=== PATIENT | male | born 1960 | race Caucasian/White ===

== ENCOUNTER → 2023-11-05 | Outpatient (CLI) | payer BC, SELFPAY ==
[2023-11-05 10:20] LABS: Absolute Lymphocyte Count 1.49 X10^3/uL (0.83-4.51); Absolute Neutrophil Count 4.6 X10^3/uL (2.0-7.7); Basophil# 0.07 X10^3/uL; Eosinophil# 0.19 X10^3/uL; Eosinophils% 2.7 % (0-5); Hematocrit 45.4 % (40-54); Lymphocyte # 1.49 X10^3/ul (0.83-4.51); Lymphocyte % 21.3 % (19-41); Mean Corpuscular Hgb 27.1 pg (27.0-32.0); Mean Corpuscular Volume 82.1 fL (80-94); Mean Platelet Vol. 10.7 fl (6.2-12.0); Monocyte# 0.65 X10^3/uL; Monocyte% 9.3 % (0-10); NRBC Flagged by Analyzer 0 % (0-5); Neutrophil # 4.58 X10^3/uL (2.7-7.7); Neutrophil % 65.4 % (47-70); Platelet Count 251 K/mm3 (150-450); RBC Distribution Width CV 14.1 % (11.6-14.6); RBC Distribution Width SD 41.8 fl (35.1-43.9); Red Blood Count 5.53 M/mm3 (4.6-6.2)
[2023-11-05 10:55] LABS: ALB/GLOB Ratio 1.1 RATIO (0.9-2.4); AST(SGOT) 38 U/L (15-37); Alanine Aminotransfer ALT/SGPT 85 U/L (16-61); Albumin, Serum 3.8 g/dL (3.2-5.0); Alkaline Phosphatase 81 U/L (45-117); Anion Gap 8 (5-15); BUN 17 mg/dL (7-18); Calcium,Total 9.1 mg/dL (8.5-10.1); Chloride 105 mmol/L (98-107); Cholesterol 196 mg/dL (200); Creatinine, Serum 1.13 mg/dL (0.70-1.30); EST Glomerular Filtration Rate 70 mL/min (>60); Est Glom Filt Rate - Afr Amer 85 mL/min (>60); Globulin 3.4 g/dL (2.2-4.2); Glucose 115 mg/dL (74-106); High Density Lipoprotein 29 mg/dL; PSA,Total - Annual Screen 0.92 ng/mL (0.00-4.00); Potassium 3.5 mmol/L (3.5-5.1); Protein, Total 7.2 g/dL (6.4-8.2); Sodium Level 138 mmol/L (136-145); Thyroid Stim Hormone (TSH) 1.91 uIU/mL (0.358-3.74); Triglycerides 201 mg/dL; Very Low Density Lipoprotein 40 mg/dL (5-40)
[2023-11-05 11:52] LABS: Vitamin D,25 Hydroxy 29.8 ng/mL
== END | disposition home or self-care (01) ==
LOC: MTLAB 07:41
PROVIDERS: PCP Family Medicine; Referring Provider Family Medicine; Visit Provider Family Medicine
DX: Z12.5 Encounter for screening for malignant neoplasm of prostate (principal); I10 Essential (primary) hypertension
CPT/HCPCS: 36415; 80053; 80061; 82306; 84153; 84443; 85025; G0103

== ENCOUNTER 2024-03-20 10:11 | Observation (INO) | payer OTHER, SELFPAY ==
--- NOTE | 2024-02-29 12:15 | EKG12_ITS ---
Test Reason : PRE OP Blood Pressure : / mmHG Vent. Rate : 056 BPM Atrial Rate : 056 BPM P-R Int : 158 ms QRS Dur : 086 ms QT Int : 434 ms P-R-T Axes : 030 018 023 degrees QTc Int : 418 ms Sinus bradycardia Otherwise normal Confirmed by Red Cornelius ([id number]), map editor JORGE ALBERTO BAUGH ([id number]) on 03/01/2024 5:23:31 AM Referred By: Omega Ba Confirmed By:Red Cornelius
[2024-02-29 13:20] LABS: Absolute Lymphocyte Count 1.73 X10^3/uL (0.83-4.51); Absolute Neutrophil Count 3.9 X10^3/uL (2.0-7.7); Basophil# 0.07 X10^3/uL; Basophil% 1.1 % (0-1); Eosinophil# 0.18 X10^3/uL; Eosinophils% 2.8 % (0-5); Hematocrit 43.2 % (40-54); Hemoglobin 14.3 g/dL (13.0-16.5); Lymphocyte # 1.73 X10^3/ul (0.83-4.51); Lymphocyte % 26.7 % (19-41); Mean Corp Hgb Conc 33.1 g/dL (32-36); Mean Corpuscular Hgb 27.3 pg (27.0-32.0); Mean Corpuscular Volume 82.4 fL (80-94); Mean Platelet Vol. 10.5 fl (6.2-12.0); Monocyte# 0.62 X10^3/uL; Monocyte% 9.6 % (0-10); NRBC Flagged by Analyzer 0 % (0-5); Neutrophil # 3.86 X10^3/uL (2.7-7.7); Neutrophil % 59.5 % (47-70); Platelet Count 224 K/mm3 (150-450); RBC Distribution Width CV 14.2 % (11.6-14.6); RBC Distribution Width SD 42.3 fl (35.1-43.9); Red Blood Count 5.24 M/mm3 (4.6-6.2); White Blood Count 6.5 K/mm3 (4.4-11.0)
[2024-02-29 13:38] LABS: Albumin, Serum 3.7 g/dL (3.2-5.0); Anion Gap 6 (5-15); BUN 16 mg/dL (7-18); BUN/Creat Ratio 15.2 RATIO (10-20); Calcium,Total 9.6 mg/dL (8.5-10.1); Chloride 102 mmol/L (98-107); Creatinine, Serum 1.05 mg/dL (0.70-1.30); EST Glomerular Filtration Rate 76 mL/min (>60); Est Glom Filt Rate - Afr Amer 92 mL/min (>60); Glucose 98 mg/dL (74-106); Magnesium 2.1 mg/dL (1.6-2.6); Potassium 3.5 mmol/L (3.5-5.1); Sodium Level 138 mmol/L (136-145)
[2024-03-20] VITALS (15 sets, daily range): BP systolic 94–142; BP diastolic 46–87; PULSE 72–101; RESP 16–18; TEMP 36.2–37; O2SAT 94–100; BMI 42.0; BMI 44.4
--- NOTE | 2024-03-20 08:18 | PCM.PRE.AN2 ---
ASA Classification* ASA Classification ASA Classification: 3 Assessment & Plan Anesthesia* Anesthesia Assessment Anesthesia Assessment: Discussed sedation and/or anesthesia options, risks, benefits, and alternatives with patient/parents/legal guardian/POA. Questions invited. The patient/parents/legal guardian/POA seems to understand and agrees to proceed with anesthesia plan. Reviewed the physical assessment, medical history, allergy history and patient home medications list prior to surgery/procedure/anesthetic and documented any changes. Performed airway and anesthesia risk assessments. Anesthesia Type Anesthesia Type: Spinal Anesthesia Focused Assessment* Airway Assessment Mouth opens: >3 cm Mallampati Score: II Focused Labs Anesthesia Preop lab: CBC WBC 6.5 K/mm3 (4.4-11.0) 02/29/24 12:31 RBC 5.24 M/mm3 (4.6-6.2) 02/29/24 12:31 Hgb 14.3 g/dL (13.0-16.5) 02/29/24 12:31 Hct 43.2 % (40-54) 02/29/24 12:31 Plt Count 224 K/mm3 (150-450) 02/29/24 12:31 CHEMISTRY Potassium 3.5 mmol/L (3.5-5.1) 02/29/24 12:31 Sodium 138 mmol/L (136-145) 02/29/24 12:31 Magnesium 2.1 mg/dL (1.6-2.6) 02/29/24 12:31 BUN 16 mg/dL (7-18) 02/29/24 12:31 Creatinine 1.05 mg/dL (0.70-1.30) 02/29/24 12:31 Glucose 98 mg/dL (74-106) 02/29/24 12:31 TSH 1.91 uIU/mL (0.358-3.74) 11/05/23 07:42 COAG Pre-Assessment Diagnosis/Proposed Procedure Planned Operative Procedure(s): ANTERIOR RIGHT TOTAL HIP ARTHROPLASTY Anesthesia History Anesthesia History - group controller: Anesthesia History - group controller Hx Hospitalization No 02/25/24 10:29 Any Problems With Anesthesia No 02/25/24 10:29 Cholinesterase deficiency No 02/25/24 10:29 You/Your Family Experience No 02/25/24 10:29 fever (hyperthermia) with Relationship Recent Exposure to Contagious Disease Does patient have nerve No 02/25/24 10:29 stimulator Patient instructed to have device shut off --Does patient have Pacemaker or ICD? When Was Last Pacemaker Check QUESTION #4 FULL TEXT: You/Your Family Experience fever (hyperthermia) with Anesthesia Last Oral Intake Last Oral intake: Last Oral Intake NPO since Meds taken in AM with sips of water? Meds patient instructed to take am of surgery PONV PONV - group controller: PONV - group controller Female No 02/25/24 10:29 HX of Motion Sickness No 02/25/24 10:29 HX of N/V After Surgery No 02/25/24 10:29 Non-Smoker Yes 02/25/24 10:29 Duration of Surgery greater Yes 02/25/24 10:29 than 60 minutes Number of Risk Factors 2 02/25/24 10:29 PONV Score Moderate Risk 02/25/24 10:29 Height & Weight Height & Weight: Anesthesia: Height & Weight Weight: 144.469 kg 03/17/24 10:14 Respiratory Assessment Respiratory Assessment - group controller: Respiratory Tract Infection Hx - group controller Hx Respiratory Tract Infection No 02/25/24 10:29 STOP Sleep Apnea STOP Sleep Apnea - group controller: STOP Sleep Apnea - group controller Hx Hypertension Yes: CONTROLLED WITH MED 02/25/24 10:29 Hx Sleep Apnea Yes 02/25/24 10:29 CPAP Yes: NONCOMPLIANT 02/25/24 10:29 BIPAP No 02/25/24 10:29 Do you snore loudly (louder than talking or can be heard Do you often feel tired/ fatigued/ sleepy during daytime? Has anyone observed you stop breathing during sleep? STOP Results Positive 02/25/24 10:29 QUESTION #5 FULL TEXT : Do you snore loudly (louder than talking or can be heard through closed doors)? Tobacco Use History Tobacco Use History - group controller: Tobacco Use History - group controller Tobacco Use Smoking Status Never smoker 02/25/24 10:29 Hx Tobacco Use No 02/25/24 10:29 Years Smoking Packs Smoked per Day Smoking Cessation Date was within the last 15 years Hx Smoking Cessation Date Hx Smoking Cessation Counseling Hematologic Medial History Hematologic Hx - group controller: Hematologic Medical Hx - chief risk officer Hx of Blood Transfusion No 02/25/24 10:29 Hx of Transfusion in last 3 No 02/25/24 10:29 Months Date of Last Transfusion (if within last 3 months) Ever experience any problems No 02/25/24 10:29 with transfusion(s)? Specify any problems Hx of Preganancy in last 3 N/A 02/25/24 10:29 Months Nurse Filling Out Transfusion DSCHRIBER 02/25/24 10:29 & Questions: Date: 02/25/24 02/25/24 10:29 Time: 10:31 02/25/24 10:29 Patient unable to answer at this time (ie. confused, unrespo /Reproduction History /Reproductive History - group controller: /Reproductive Hx- group controller Hx Now No 02/25/24 10:29 Gestational Age (in weeks): EDC: Hx Hx Para Hx Section SAB No 02/25/24 10:29 Active Medications Active Medications: Current Medications Generic Name Dose Route Start Last Admin Trade Name Freq PRN Reason Stop Dose Admin Acetaminophen 1,000 mg 03/20/24 12:30 Acetaminophen 500 Mg Tablet PO 03/20/24 12:31 X1 ONE Celecoxib 400 mg 03/20/24 12:30 Celecoxib 200 Mg Capsule PO 03/20/24 12:31 X1 ONE Sodium Chloride 77.4 ml/ 0 ml 03/20/24 12:30 Ropivacaine 200 mg/ OPERA.SITE 03/20/24 12:31 Epinephrine HCl 0.6 mg/ X1 ONE Ketorolac Tromethamine 30 mg/ Morphine Sulfate 5 mg Dexamethasone Sodium Phosphate 10 mg 03/20/24 12:30 Dexamethasone 10 Mg/Ml Vial IV 03/20/24 12:31 X1 ONE Gabapentin 600 mg 03/20/24 12:30 Gabapentin 600 Mg Tablet PO 03/20/24 12:31 X1 ONE Lactated Ringer's 1,000 mls @ 999 mls/hr 03/20/24 12:30 IV 03/20/24 13:30 .Q1H1M INOCENTE Tranexamic Acid 1,000 mg/ 110 mls @ 660 mls/hr 03/20/24 12:30 Sodium Chloride IV 03/20/24 12:39 X1 ONE Tranexamic Acid 1,000 mg/ 110 mls @ 660 mls/hr 03/20/24 13:30 Sodium Chloride IV 03/20/24 13:39 X1 ONE Lactated Ringer's 1,000 mls @ 999 mls/hr 03/20/24 13:30 IV 03/20/24 14:30 .Q1H1M INOCENTE Lactated Ringer's 1,000 mls @ 125 mls/hr 03/20/24 14:30 IV 03/20/24 22:29 .Q8H INOCENTE Cefazolin Sodium 3 gm/ N/A 30 mls @ 600 mls/hr 03/20/24 12:30 IV 03/20/24 12:32 PREOP ONE Magnesium Sulfate 1 gm/ 102 mls @ 408 mls/hr 03/20/24 12:30 Dextrose IV 03/20/24 12:44 X1 ONE Lactated Ringer's 1,000 mls @ 15 mls/hr 03/20/24 08:15 IV 03/23/24 02:54 .Q48H INOCENTE Protocol Insulin Human Lispro 1 - 6 unit 03/20/24 12:30 Insulin Lispro 100 Unit/Ml Insuln.Pen SC 03/20/24 18:30 Q4H PRN PRN BG>/= 180, SEE PROTOCOL Protocol PFSH Medical History Paralysis Wears glasses Alcohol use Arthritis High cholesterol Back pain Migraine headache Injury of head and neck CPAP (continuous positive airway pressure) dependence Non-smoker Leg cramps History of pain when walking Hypertension Home Medications ?Medication ?Instructions ?Recorded ?Last Taken ?Type aspirin 81 mg tablet,delayed 162 mg PO DAILY 02/25/24 Unknown History release (Adult Low Dose Aspirin) diclofenac sodium 75 mg 75 mg PO BID 02/25/24 Unknown History tablet,delayed release fiber 1 tab PO DAILY 02/25/24 Unknown History lisinopril 20 mg tablet 20 mg PO DAILY 02/25/24 Unknown History Allergy/AdvReac Type Severity Reaction Status Date / Time No Known Allergies Allergy Verified 02/25/24 10:24 Surgical History History of surgery on arm Hx of colonoscopy History of lumbar laminectomy Hx of shoulder surgery Hx of tonsillectomy Hx of foot surgery Hx of umbilical hernia repair Social History Smoking Status: Never smoker Review of Systems (Anesthesia) ROS Narrative System reviewed and no additional complaints, except as documented.
[2024-03-20 08:51] LABS: Bedside Glucose 131 mg/dL (74-106)
[2024-03-20] MEDS: Lactated Ringers 1,000 ML 999 ML IV ×2 (08:54→12:05)
[2024-03-20] MEDS: Gabapentin 600 MG Tablet PO (08:55)
[2024-03-20] MEDS: Acetaminophen 500 MG Tablet 1000 MG PO ×3 (08:55→22:01)
[2024-03-20] MEDS: Celecoxib 200 MG Capsule 400 MG PO (08:55)
[2024-03-20] MEDS: Magnesium 1 GM over 15 mins IV (08:55)
[2024-03-20] MEDS: Vancomycin HCl 2,000 MG in 0.9% Normal Saline (500mL Bag) 500 ML 250 MG IV (09:00)
--- NOTE | 2024-03-20 10:00 | HIP_PTH ---
PATIENT: OMEGA OWENS LOC: [facility] U#:[id number] AGE/SX: 63/M ROOM: ME318 RE03/20/[address]: Dr. Omega Ba MD : 1960 BED: 1 DIS: 03/21/2024 SPEC #: [id number] RECD: 03/20/24 13:40 STATUS: KARL HALLSwathi #: [id number] LEONEL: 03/20/24 10:[address]: Omega Ba DEPT: SURGICAL PATHOLOGY RECD BY: Tianna Lane ENTERED: 03/20/24 14:13 SP TYPE: TOTAL HIP OTHR DR: Benji Brenner MD Tissues: Hip, NOS Procedures: Decalcification bone/plaque Surgery Specimen Level IV HEADER OPERATION: Anterior right total hip arthroplasty PRE-OP DIAGNOSIS: Severe osteoarthritis right hip TISSUE SUBMITTED: Right hip : bone and tissue MICROSCOPIC DIAGNOSIS Bone and tissue of right hip, total hip resection: Severe degenerative joint disease. AM: 03/23/2024 MICROSCOPIC DESCRIPTION Slides are reviewed. GROSS DESCRIPTION Received is one container labeled with the patient's name and designated bone and soft tissue right hip. The specimen consists of a roldan femoral head (with portion of femoral neck). The femoral head measures 5.3 x 5.5 cm. The articular surface displays prominent osteophyte formation, eburnation and bone erosion. Also present in the specimen container are multiple irregular fragments of bone reamings and pink-yellow soft tissue measuring in aggregate 10.0 x 8.0 x 1.5 cm. Type Disk Quality Control Supervisor sections are submitted in two cassettes as follows: 1 - bone reamings, 2 - femoral head after decalcification. / AM. 03/20/2024 TC:5 [facility]: [id number]
--- NOTE | 2024-03-20 10:13 | RAD_ITS ---
INDICATION: Post Op -- AP both hips on single melody/lateral of op hip PACU EXAMINATION/TECHNIQUE: X-RAY - XR Hip Unilateral with Pelvis when performed; 2-3 Views COMPARISON: March 20, 2024 at 11:58 AM FINDINGS: There is a right total hip arthroplasty in place. The alignment is anatomic. There are degenerative changes of the left hip. There are postsurgical changes within the soft tissues of the right proximal thigh. No acute fracture nor dislocation. No suspicious bony lesions are seen. RAD/Hip Min 2 Views (Portable) IMPRESSION: Total right hip arthroplasty, grossly anatomic in alignment. Electronically Signed: Vane Carrasquillo MD at 13:54 EDT ,
[2024-03-20] MEDS: Cefazolin 3 GM in Syringe 1 EACH IV (10:14)
[2024-03-20] MEDS: Cefazolin 1 GM/50 ML BAG IV ×2 (10:14→19:22)
[2024-03-20] MEDS: dexAMETHasone 10 MG/ML Vial IV (10:27)
[2024-03-20] MEDS: TXA 1000mg in NS100 100ml (IVPB at Closure) 660 MG IV (10:31)
--- NOTE | 2024-03-20 11:00 | RAD_ITS ---
STUDY: X-RAY - PELVIS AND RIGHT HIP REASON FOR EXAM: Male, 63 years old. PAIN TECHNIQUE: 3 fluoroscopic intraoperative spot films of the pelvis and right hip. COMPARISON: None. FINDINGS: There is a right hip arthroplasty in place. There is no periprosthetic fracture. There is adjacent soft tissue gas, compatible with recent surgery. Normal visualized soft tissue structures. Normal bilateral superior and inferior pubic rami. Normal pubic symphysis. Normal bilateral ischial tuberosities. RAD/Hip 1 view with Pelvis IMPRESSION: Right hip arthroplasty, with no periprosthetic fracture. Electronically Signed: Main Richardson MD at 13:54 EDT ,
--- NOTE | 2024-03-20 11:15 | OP.PCM_ITS ---
Report of Operation Date of Procedure: 03/20/24 Pre-Operative Diagnosis: Right hip primary osteoarthritis Post-Operative Diagnosis: Right hip primary osteoarthritis Surgery/Procedure Performed:: Right minimally invasive direct anterior total hip replacement Description of Surgical Findings:: Stable hip with equal leg length Surgeon: Omega Ba woolen suiting shrinker: Jez Flores Type of Anesthesia: Spinal Anesthesiologist: Vijay Erickson Special Medications: 2 g Ancef, 1 g TXA at incision, 1 g TXA closure, 10 mg Decadron, joint cocktail (5 mg Duramorph, 30 mL of 0.5% Ropivicaine, 1000 units of epinephrine, 30 mg of Toradol) Specimen's removed: Bony cuts Estimated Blood Loss (mL): 350 Fluids Replaced: 1400 Description of Procedure: Components used: 1. Accolade 2 Miguel femoral stem size 5 127? 2. Masury trident 2 acetabular shell size 58 mm 3. Masury X3 polyethylene F 4. Masury Biolox delta 36mm, 5mm femoral head Brief history operative indications: 63 yo M who failed conservative measures for their hip osteoarthritis. X-rays were consistent with osteoarthritis including joint space narrowing, osteophyte formation and subchondral cysts. Total hip replacement was discussed with the patient with risks and benefits including but not limited to blood loss, DVTs, PEs, neurovascular damage, dislocation, general risks of anesthesia including loss of life. Patient demonstrated an understanding medical clearance is obtained the patient was consented for surgery. Procedure: On the date of procedure the patient's right hip was marked in the preoperative area. Patient was then taken back to the operating room where anesthesia assumed control of the C-spine and airway and administered anesthetic. Patient was transferred to the operating table and placed in the supine position. The hips were placed at the break of the bed and a sacral bump was placed. The right lower extremity was then prepped out in a sterile fashion using chlorhexidine while the surgeon scrubbed. The PA was vital in the positioning of the patient. Upon reentering the room the right lower extremity was draped in the standard orthopedic fashion and the incision was marked. A timeout was called and e veryone agreed upon the side, the site, the procedure be performed, antibody given, and patient's identity. At this time incision was made through skin, subcutaneous tissue, and fat down to fascia. The fascia was then incised and the TFL was retracted laterally. A retractor was placed on the lateral border of the femoral neck. Attention was directed to the inferior portion of the approach and all crossing vessels were identified and appropriately coagulated. A retractor was then placed on the medial portion of the femoral neck. The anterior capsule was then cleared of all soft tissue and then H shaped capsulotomy was made. The retractors were then placed inside the capsule. The femoral neck was identified and a cleanup cut was made. At this time a power corkscrew was used to remove the femoral head. Attention was then turned toward the acetabulum where the soft tissues were appropriately retracted and the acetabulum was sequentially reamed to 58 mm. A 58 mm cup was then selected and impacted into place. Acetabular liner was impacted into place and locking mechanism was verified. The position of the acetabular cup was then verified under live fluoroscopy. Attention was then turned to the femur. Soft tissue releases on the medial and lateral femoral neck were appropriately done, the leg was externally rotated and lateralized. A Cisneros retractor was placed medially and proximally to the greater trochanter this allowed appropriate visualization and exposure of the femoral canal. Rongeour was then used to remove excess lateral bone. A canal finder and entry broach were used to open the proximal canal. Once we verified we were down the femoral canal we subsequently broached up to a size 5 femur. The appropriate neck was placed in the previously selected head was trialed with a 5 mm neck. Traction was pulled and the hip was reduced with internal rotation. Once it was appropriately reduced and stability was checked. There was minimal shuck, equal leg lengths and appropriate stability with hyperextension and external rotation as well as with 90? flexion and internal rotation. Fluoroscopy was then also used to verify the position of the componen ts and leg lengths using the contralateral side for comparison. The trial components were then dislocated the proximal femur was again exposed and the components were removed from the wound. The final components were verified and opened. The wound was copiously irrigated out with normal saline. The acetabulum was checked for any residual debris. The final components were placed and impacted. Traction and internal rotation were again used to reduce the hip. After adequate reduction the hip remained stable with appropriate leg lengths. The final components were once again checked with live fluoroscopy and were found to be satisfactory. The wound was then copiously irrigated with normal saline once more, and hemostasis was obtained. Closure was then done using #1 Vicryl runner to close the fascia. A 2-0 vicryl interuppted sutures were used to close the subcutaneous skin. A 3-0 Monocryl and Steri-Strips were used for final skin closure. A Silverlon dressing was placed. Patient was awakened by anesthesia and transferred to the [facility]. Patient was then transferred to the PACU for recovery. During the course of the procedure the physician lockstitch coat joiner (PE) played a vital role. Their intimate knowledge of my steps in the procedure aided in safe and expedient completion of the procedure. The PE played a vital rolls in positioning particularly in obtaining the appropriate positioning of the sacral bump. The PE was also vital in the retraction of soft tissues during the exposure and especially the femoral work as this is a vital part of the procedure to prevent complications and fractures. The PE was also vital and protecting soft tissues during times of bony cuts and reaming. He also played a vital role in closure with my direct supervision. The PE was also important during reduction and dislocation of the joint and trials intraoperatively. Postoperative plan: Patient will get 24 hours postop antibiotics. Patient will get in-house physical therapy and will be weight-bear as tolerated. Patient will follow up in office in 2 weeks for a wound check and x-rays. Aspirin 81 mg twice daily. Positive staph and BMI greater than 40. Patient be placed on extended oral postop antibiotics doxycycline 100 mg p.o. twice daily Complications No intraoperative complications Admit VTE Documentation VTE Present on Admission: No VTE Mechan Device Prophylaxis: SCD's and Thigh High MATHEW Hose VTE Pharm Prophylaxis ordered?: Yes
[2024-03-20] MEDS: TXA 1000mg in NS100 100ml (IVPB at Incision) 660 MG IV (11:17)
[2024-03-20] MEDS: JPS (Morphine 10mg/ml) OPERA.SITE (11:23)
[2024-03-20] MEDS: Lactated Ringers 1,000 ML 125 ML IV (13:29)
--- NOTE | 2024-03-20 13:54 | PCM.POST.ANE ---
Anesthesia: Postop Eval I Current Vital Signs Temperature: 97.1 F Pulse Rate: 94 Blood Pressure: 94/87 Respiratory Rate: 16 Pulse Ox: 96 Oxygen Delivery Method: Room Air Assessment Airway patent: Yes Spontaneous unlabored respirations: Yes Mental status: Awake and Calm nausea: No Vomiting: No Anesthesia Complication: No Fluid Hydration Crystalloid volume administer (ml): 1,400 Total IV fluid infused: 1,400 Progress Note Anesthesia document: Postop Eval 1 completed: Yes
[2024-03-20] MEDS: Ensure Surgery 237 ML LIQUID PO ×2 (14:31→17:57)
--- NOTE | 2024-03-20 16:48 | POSTOPAN2_ITS ---
Anesthesia Postop Eval I Sum Postop Eval Completion status Anesthesia document: Postop Eval 1 completed: Yes Anesthesia Postop Eval I Summary Anesthesia Postop Eval I Summary: Anesthesia Postop Eval I: Assessment Summary Airway patent Yes 03/20/24 13:55 PRINT [email or web address].MDOT Spontaneous unlabored Yes 03/20/24 13:55 PRINT CUTTER.MDOT respirations Mental status Awake,Calm 03/20/24 13:55 PRINT CUTTER.MDOT nausea No 03/20/24 13:55 PRINT CUTTER.MDOT Vomiting No 03/20/24 13:55 PRINT [email or web address].MDOT Anesthesia Postop Eval I: Fluid Summary Crystalloid volume administer 1,400 03/20/24 13:55 PRINT CUTTER.MDOT (ml) Colloids volume administered ( ml) Blood Product volume administered (ml) Total IV fluid infused 1,400 03/20/24 13:55 PRINT CUTTER.MDOT Anesthesia Postop Eval I: Summary Notes Anesthesia Complication No 03/20/24 13:55 PRINT [email or web address].MDOT Anesthesia Complication Comment: Post-operative progress note Anesthesia: Postop Eval II Evaluation Mental status: Awake and Calm Pain Level: 1 nausea: No Vomiting: No Complications Anesthesia Complication: No
--- NOTE | 2024-03-20 16:48 | PCM.POSTANE2 ---
Anesthesia Postop Eval I Sum Postop Eval Completion status Anesthesia document: Postop Eval 1 completed: Yes Anesthesia Postop Eval I Summary Anesthesia Postop Eval I Summary: Anesthesia Postop Eval I: Assessment Summary Airway patent Yes 03/20/24 13:55 [email or web address] Spontaneous unlabored Yes 03/20/24 13:55 [email or web address] [email or web address] respirations Mental status Awake,Calm 03/20/24 13:55 [email or web address] nausea No 03/20/24 13:55 [email or web address] [email or web address] Vomiting No 03/20/24 13:55 [email or web address] [email or web address] Anesthesia Postop Eval I: Fluid Summary Crystalloid volume administer 1,400 03/20/24 13:55 [email or web address] [email or web address].MDOT (ml) Colloids volume administered ( ml) Blood Product volume administered (ml) Total IV fluid infused 1,400 03/20/24 13:55 [email or web address] [email or web address] Anesthesia Postop Eval I: Summary Notes Anesthesia Complication No 03/20/24 13:55 [email or web address] [email or web address] Anesthesia Complication Comment: Post-operative progress note Anesthesia: Postop Eval II Evaluation Mental status: Awake and Calm Pain Level: 1 nausea: No Vomiting: No Complications Anesthesia Complication: No
[2024-03-20] MEDS: Aspirin 81 MG TAB.CHEW PO (17:55)
[2024-03-20] MEDS: Ketorolac 15 MG/ML Vial IV (18:05)
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
[2024-03-20] MEDS: Senna/Docusate Sodium 1 Tablet 2 TABLET PO (22:01)
[2024-03-21 01:44] VITALS: BP 125/70; PULSE 88; RESP 18; TEMP 36.6; O2SAT 95; BMI 44.5
[2024-03-21] MEDS: Cefazolin 1 GM/50 ML BAG IV (02:06)
[2024-03-21] MEDS: Acetaminophen 500 MG Tablet 1000 MG PO ×2 (05:56→14:16)
[2024-03-21 06:00] VITALS: BP 127/71; PULSE 72; RESP 18; TEMP 36.5; O2SAT 92; BMI 44.5
[2024-03-21 06:52] LABS: Hematocrit 41.2 % (40-54); Hemoglobin 13.8 g/dL (13.0-16.5); Mean Corp Hgb Conc 33.5 g/dL (32-36); Mean Corpuscular Hgb 27.5 pg (27.0-32.0); Mean Corpuscular Volume 82.1 fL (80-94); Mean Platelet Vol. 10.3 fl (6.2-12.0); Platelet Count 224 K/mm3 (150-450); RBC Distribution Width CV 14.3 % (11.6-14.6); RBC Distribution Width SD 42.5 fl (35.1-43.9); Red Blood Count 5.02 M/mm3 (4.6-6.2); White Blood Count 16.9 K/mm3 (4.4-11.0)
[2024-03-21 07:02] LABS: Anion Gap 7 (5-15); BUN 13 mg/dL (7-18); BUN/Creat Ratio 13.3 RATIO (10-20); Calcium,Total 8.8 mg/dL (8.5-10.1); Chloride 108 mmol/L (98-107); Creatinine, Serum 0.98 mg/dL (0.70-1.30); EST Glomerular Filtration Rate 83 mL/min (>60); Est Glom Filt Rate - Afr Amer 100 mL/min (>60); Estimated Creatinine Clearance 117.27 ml/min; Glucose 156 mg/dL (74-106); Potassium 3.6 mmol/L (3.5-5.1); Sodium Level 139 mmol/L (136-145)
[2024-03-21 07:57] VITALS: O2SAT 96
[2024-03-21 08:30] VITALS: PULSE 62
[2024-03-21] MEDS: Lisinopril 20 MG Tablet PO (08:45)
[2024-03-21] MEDS: Senna/Docusate Sodium 1 Tablet 2 TABLET PO (08:45)
[2024-03-21] MEDS: Famotidine 20 MG Tablet PO (08:45)
[2024-03-21] MEDS: Aspirin 81 MG TAB.CHEW PO (08:45)
--- NOTE | 2024-03-21 09:19 | PN.ORTHO_ITS ---
Subjective Subjective The patient was sitting in bed upon examination. Patient denies any chest pain, shortness of breath, dizziness, lightheadedness, nausea or vomiting, or calf pain. Pain is controlled on medications. No adverse overnight events. Patient has no significant complaints today. Overall doing well. Ready for discharge home today. Objective Data Objective Data Vital Signs: Vital Signs Temp Pulse Resp BP Pulse Ox O2 Del Method O2 Flow Rate 97.7 F L 62 18 127/71 H 96 Room Air 3 03/21/24 06:00 03/21/24 08:30 03/21/24 06:00 03/21/24 06:00 03/21/24 07:57 03/21/24 07:57 03/20/24 14:30 Oxygen Flow Rate (L/min) 3 Oxygen Delivery Method Room Air Weight: 148.8 kg Body Mass Index (BMI) 44.4 Intake & Output: Intake and Output for Last 24 Hours 03/19/24 03/20/24 03/21/24 23:59 23:59 23:59 Intake Total 3992 / 3992 50 / 50 Balance 3992 / 3992 50 / 50 Lab / Micro Data 03/21/24 06:14 03/21/24 06:14 Labs: Laboratory Results - last 24 hr 03/21/24 06:14: WBC 16.9 H, RBC 5.02, Hgb 13.8, Hct 41.2, MCV 82.1, MCH 27.5, MCHC 33.5, RDW Std Deviation 42.5, RDW Coeff of Valentin 14.3, Plt Count 224, MPV 10.3, Sodium 139, Potassium 3.6, Chloride 108 H, Carbon Dioxide 25.0, Anion Gap 7, BUN 13, Creatinine 0.98, Estim Creat Clear Calc 117.27, Est GFR (MDRD) Af Amer 100, Est GFR (MDRD) Non-Af 83, BUN/Creatinine Ratio 13.3, Glucose 156 H, Calcium 8.8 Micro: Microbiology 02/29/24 12:31 Swab (Method) Nasal Screen MRSA/MSSA - Final Radiography Diagnostic Testing: Radiology Impression Hip X-Ray 03/20/24 10:13 IMPRESSION: Total right hip arthroplasty, grossly anatomic in alignment. Electronically Signed: Vane Carrasquillo MD at 13:54 EDT , Physical Exam Narrative Vital signs stable and afebrile. Right hip is soft and supple SCDs and MATHEW hose are in place bilaterally Patient is able to plantarflex and dorsiflex actively. Sensation is intact to light touch to saphenous, sural, superficial and deep peroneal, and tibial distribution. Dressing is clean dry and intact. Negative Homans bilaterally, negative signs and symptoms of DVT. Const alert, oriented x3 and no apparent distress Assessment & Plan Assessment/Plan (1) S/P total right hip arthroplasty: PLAN: 1. S/P direct anterior right total hip arthroplasty POD #1 2. Continue Pain Medications: Tylenol, diclofenac, and oxycodone. Patient states he does not have a refill on his nonsteroidal anti-inflammatory. I will send him in this prescription on postop. Recommend discontinuing this after 1-2 months postoperatively. He should not take any other nonsteroidal anti- inflammatories in addition to this medication. He voiced understanding agreement. 3. DVT Prophylaxis: Take 81 mg aspirin twice daily for 4 weeks postoperatively for DVT prophylaxis. Patient denies past history of DVT or pulmonary embolism. 4. PT/OT: Weightbearing as tolerated with walker. Continue with anterior hip precautions 5. H & H: 13.8/41.2, asymptomatic. 6. Reactive leukocytosis: 16.9, Afebrile. Patient did receive Decadron intraoperatively. No clinical signs of infection. 7. Currently on doxycycline for 2 weeks postoperatively due to BMI greater than 40.0 and findings of staph positive preoperatively. I discussed with the patient potential side effects of doxycycline including sensitivity to the sunlight and increased risk of skin burn. Recommend patient take appropriate precautions. Also recommend patient to take probiotic while on the antibiotic. Patient voiced understanding agreement. 8. Encouraged Incentive Spirometry 9. Patient is aware of postoperative constipation that can occur from 1-3 days postoperatively. Will continue with senna 2 tablets twice daily until first bowel movement. Patient was advised if not having a bowel movement after day 3 she is to contact orthopedics so appropriate change can be made. Patient voiced understanding. 10. Continue postoperative medical treatment per medicine 11. Disposition: Plan will be for discharge home today as long as patient remains medically stable, tolerates therapy, and pain is adequately controlled. 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 He would like his prescriptions E scribed to [facility] in [facility]. He will follow-up per postoperative instructions. Patient does have outpatient physical therapy established. He will contact our office upon discharge with any concerns or questions. I discussed with the patient postoperative treatment with regards to medications, restrictions and thigh discomfort. We also discussed no driving for 6 weeks postoperatively. I have reviewed the [place] Automated Rx Reporting System (OARRS) report for this patient for refill pattern and other prescriber involvement as part of the appropriate surveillance for the provision of acute and chronic controlled medications. The report was requested and reviewed on the date of this entry and was considered in the prescribing process. This dictation was created using voice recognition software. Phonetic and/or grammatical errors may exist.
--- NOTE | 2024-03-21 09:23 | DCINST_ITS ---
Discharge Instructions Diet Discharge Diet: No restrictions Activity Discharge Activity: May Not Drive (No driving for 6 weeks postoperatively. Must also be off all narcotics and able to walk 100 feet without the use of cane or walker.) May shower in (days): 1 (only if incision is dry and without drainage. Do NOT soak/submerge in tub/pool/navarro/stream/hot tub.)) Ice area for (Minutes): 20 (Every 1-2 hours while awake[address] barrier between ice and skin.) Weight Bearing Status: Weight bearing as tolerated Keep extremity elevated above heart level: Operative Extremity Additional Activity Instructions:: Follow [facility] Post-op Instructions. Once postoperative dressing has been removed only use gentle soap and water over the incision. Do not use any ointments, Neosporin, salves, alcohol pads over the incision for 6 weeks postoperatively. Do not submerge underwater for 6 weeks postoperatively. Wear elastic stockings for 2 weeks. Do NOT use alcohol with narcotic pain medication. Do NOT make important decisions while taking narcotic medication. If you have problems with taking your medication (rash, itching, nausea, etc.) call the office at once. Dressing / Incision Call your doctor if your incision/area has: Continuous Slow Oozing, Sudden Increased Bleeding, Increased Pain/ Swelling, Increased Redness and Foul Smelling Discharge Call your doctor if you observe: Fever of 101 or Higher, Shortness of breath, Chest pain, Calf discomfort and Uncontrolled pain Remove Dressing in: 4 days (Okay to remove dressing on March 25, 2024) Additional Dressing/Incision Instructions:: Follow [facility] Post-op Instructions. Once postoperative dressing has been removed, only use gentle soap and water over the incision. Do not use any ointments, Neosporin, salves, alcohol pads over the incision for 6 weeks postoperatively. Do not submerge underwater for 6 weeks postoperatively. Continue with MATHEW hose/elastic stockings for 2 weeks postoperatively. May remove at nighttime but needs to be placed back on the leg during the day. Do NOT use alcohol with narcotic pain medication. Do NOT make important decisions while taking narcotic medication. If you have problems with taking your medication (rash, itching, nausea, etc.) call the office at once. Follow Up Care Test Results: Test results from this visit will be discussed in further detail at your follow- up appointment, if applicable. Discharge Plan Admission Admit Date/Time: 03/20/24 10:11 Attending Provider: Omega Ba Primary Care Provider: Benji Brenner Consulting Providers: Yair Smith; Anam Santana Discharge Orders/Prescriptions Prescriptions: New acetaminophen 500 mg Tablet 1,000 mg PO Q8 14 Days Qty: 84 0RF Rx Instructions: Do not take more than 3000 mg Tylenol in a 24-hour period. aspirin 81 mg Tablet,Chewable 81 mg PO BIDCM 30 Days Qty: 60 0RF Rx Instructions: Take 81 mg aspirin twice daily for 4 weeks postoperatively for DVT prophylaxis. diclofenac sodium 75 mg Tablet,Delayed Release (Dr/Ec) 75 mg PO BID 30 Days Qty: 60 1RF famotidine 20 mg Tablet 20 mg PO DAILY 30 Days Qty: 30 0RF doxycycline monohydrate 100 mg Capsule 100 mg PO BID 14 Days Qty: 28 0RF oxycodone 5 mg Tablet 5 - 10 mg PO Q4H PRN PRN (Reason: Pain Score 4-10) 7 Days Qty: 42 0RF sennosides-docusate sodium [Stimulant Laxative Plus] 8.6-50 mg Tablet 2 tab PO BID 3 Days Qty: 12 0RF Rx Instructions: Take until first bowel movement, then as needed Continued lisinopril 20 mg tablet 20 mg PO DAILY fiber Tablet,Chewable 1 tab PO DAILY Discontinued diclofenac sodium 75 mg tablet,delayed release (DR/EC) 75 mg PO BID aspirin [Adult Low Dose Aspirin] 81 mg tablet,delayed release (DR/EC) 162 mg PO DAILY Referrals / Follow Up: Physical,Therapy [Other] - 03/23/24 8:00 am Benji Brenner MD [Primary Care Provider] - Andra Reece PA [Med Staff - Adv Practice Prof] - 04/04/24 8:15 am Disposition Disposition (needs filled in before D/C Order can be placed): Home, Self Care
[2024-03-21 09:44] VITALS: BMI 44.5
--- NOTE | 2024-03-21 10:10 | CASEMGMT ---
JOSIE LUZT Assessment: Face to Face with pt for initial transition planning/care coordination assessment. RN BOLIVAR introduced self and role at [facility], pt voices understanding and consents to assessment. Pt is A&O x4 and answers all questions appropriately at this time. Pt sitting up in chair in no distress. Care providers, pharmacy, and demographics verified/updated. Strata: 1 Admitting Dx: Anterior R total hip arthroplas PCP: Elidia Specialists: José Manuel Ba. Preferred Pharmacy: [facility] Insurance: [facility] Prescription Benefit: yes LNOK: Marlene Living Arrangements: Pt lives with in a 1 story home with 2 steps to enter. ADLs: I at baseline. Transportation: Pt drives self and denies concerns with transportation. DME: [facility], cane. HHC/SNF: Denies Hx of Pt states no concerns with going home at time of dc. Pt states OP PT scheduled for 03/23/27. Pt states no further concerns/needs. CM to follow. Advised pt to ask CM if any further question/concerns/needs arise, voices understanding. Pt Goal: Home Plan: Home with OP PT. Terell GALINDO CM
--- NOTE | 2024-03-21 11:01 | PHA.DC.MC.R ---
Pharmacy [facility] has performed discharge medication reconciliation and counseling for this patient. 1. ACETAMINOPHEN 1000MG PO Q8 2. DOXYCYCLINE 100MG PO BID X 14 DAYS 3. FAMOTIDINE 20MG PO DAILY 4. SENNA/DOCUSATE 2T PO BID UNTIL FIRST BM THEN PRN CONSTIPATION The patient's discharge medication list was reviewed for discrepancies and discrepancies were resolved. The patient was counseled on the following discharge medications and changes in medications for homegoing were reviewed. The Reason for Use, instructions for use, and potential side effects were reviewed for all new medications. The patient's questions regarding all of their medications were answered. The patient was able to verbally demonstrate an understanding of their discharge medications. Medications at Discharge Home Medications fiber 1 tab PO DAILY 02/25/24 lisinopril 20 mg tablet 20 mg PO DAILY 02/25/24 acetaminophen 500 mg tablet 1,000 mg (2 x 500 mg) PO Q8 14 days #84 tabs 03/21/24 aspirin 81 mg chewable tablet 81 mg PO BIDCM 30 days #60 tabs 03/21/24 diclofenac sodium 75 mg tablet,delayed release 75 mg PO BID 30 days #60 tabs 03/21/24 doxycycline monohydrate 100 mg capsule 100 mg PO BID 14 days #28 caps 03/21/24 famotidine 20 mg tablet 20 mg PO DAILY 30 days #30 tabs 03/21/24 oxycodone 5 mg tablet 5 - 10 mg (1 - 2 x 5 mg) PO Q4H PRN PRN Pain Score 4-10 7 days #42 tabs 03/21/24 sennosides 8.6 mg-docusate sodium 50 mg tablet (Stimulant Laxative Plus) 2 tab PO BID 3 days #12 tabs 03/21/24
[2024-03-21 14:11] VITALS: BP 138/72; PULSE 91; RESP 18; TEMP 36.7; O2SAT 94
[2024-03-21] MEDS: Doxycycline 100 MG CAPSULE PO (14:16)
== END 2024-03-21 14:50 | disposition home or self-care (01) ==
LOC: SDC 12:39 → MS3 12:39
PROVIDERS: Admitting Provider Specialist; PCP Family Medicine; Referring Provider Specialist; Visit Provider Specialist
PROC: (CPT 27284; principal; 2024-03-20 09:35)
DX: M16.11 Unilateral primary osteoarthritis, right hip (principal); Z79.82 Long term (current) use of aspirin; E78.00 Pure hypercholesterolemia, unspecified; I10 Essential (primary) hypertension; Z79.899 Other long term (current) drug therapy; G47.33 Obstructive sleep apnea (adult) (pediatric)
CPT/HCPCS: 27130; 01214; 36415; 73501; 73502; 76000; 80048; 82040; 82962; 83735; 85025; 85027; 87077; 87081; 88305; 88311; 93005; 94668; 96361; 96365; 96366; 96375; 97162; 97166; 97530; 97535; 99221; 99252; C1776; J7040; J7120; G0378; G0463; J3475

== ENCOUNTER → 2024-08-25 | Outpatient (CLI) | payer OTHER, SELFPAY ==
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
== END | disposition home or self-care (01) ==
PROVIDERS: PCP Family Medicine; Referring Provider Family Medicine; Visit Provider Family Medicine
DX: S99.921A Unspecified injury of right foot, initial encounter (principal)
CPT/HCPCS: 73630